=== PATIENT | female | born 1995 | race African-American/Black ===

== ENCOUNTER 2018-01-31 00:42 | Emergency (ER) | payer SELFPAY ==
[~2018-01-31] VITALS: Ht 162.6 cm; Wt 77.1 kg
[2018-01-31 01:10] VITALS: BP 121/75
--- NOTE | 2018-01-31 02:38 | Diagnostic Imaging Report ---
EXAM: CT Head Without Intravenous Contrast CLINICAL HISTORY: PAIN TECHNIQUE: Axial computed tomography images of the head/brain without intravenous contrast. CTDI is 70.38 mGy and DLP is 1354 mGy-cm. One or more of the following dose reduction techniques were used: automated exposure control, adjustment of the mA and/or kV according to patient size, use of iterative reconstruction technique. COMPARISON: No relevant prior studies available. FINDINGS: Brain: Unremarkable. No hemorrhage. No significant white matter disease. No edema. Ventricles: Unremarkable. No ventriculomegaly. Bones/joints: Unremarkable. No acute fracture. Soft tissues: Unremarkable. Sinuses: Unremarkable as visualized. No acute sinusitis. Mastoid air cells: Unremarkable as visualized. No mastoid effusion. IMPRESSION: No acute intracranial abnormality.
[2018-01-31] MEDS ORDERED: Norco 5mg/325mg tab ORAL ONE (02:45)
--- NOTE | 2018-01-31 02:45 | Diagnostic Imaging Report ---
EXAM: CT Orbits Without Intravenous Contrast CLINICAL HISTORY: PAIN TECHNIQUE: Axial computed tomography images of the orbits without intravenous contrast. CTDI is 28.19 mGy and DLP is 150 mGy-cm. One or more of the following dose reduction techniques were used: automated exposure control, adjustment of the mA and/or kV according to patient size, use of iterative reconstruction technique. COMPARISON: No relevant prior studies available. FINDINGS: Orbits: Unremarkable. Sinuses: Minimal mucosal thickening in the floor of the right maxillary sinus. No air-fluid levels. Bones/joints: Minimal cortical irregularity in the anterior medial aspect of the right orbital wall with tiny foci of subjacent air in the periorbital fat. No adjacent hematoma. No other acute bony abnormality. Soft tissues: Unremarkable. Nasal cavity/septum: Mild nasal septal deviation towards the left. Mild hypertrophy of the left inferior turbinate. Nasopharynx: Slight prominence of the posterior nasopharynx, likely represents prominent adenoids. IMPRESSION: Suspect nondisplaced fracture in the anterior medial right orbital wall. No other acute bony abnormality. Prominent adenoids.
[2018-01-31] MEDS ORDERED: NORCO 5-325 TA1 EACH ORAL (02:50)
[2018-01-31] MEDS ORDERED: IBUPROFEN600 MG ORAL (02:50)
--- NOTE | 2018-01-31 03:00 | Diagnostic Imaging Report ---
EXAM: CT Cervical Spine Without Intravenous Contrast CLINICAL HISTORY: PAIN TECHNIQUE: Axial computed tomography images of the cervical spine without intravenous contrast. CTDI is 19.06 mGy and DLP is 433 mGy-cm. One or more of the following dose reduction techniques were used: automated exposure control, adjustment of the mA and/or kV according to patient size, use of iterative reconstruction technique. COMPARISON: No relevant prior studies available. FINDINGS: Vertebrae: Straightening of the normal cervical lordosis which may reflect muscle spasm or positional artifact. No acute fracture. Discs/spinal canal/neural foramina: No acute findings. No spinal canal stenosis. Soft tissues: Unremarkable. Nasopharynx: Prominent posterior naso-pharynx likely prominent adenoids. Other findings: No discrete bony lesion. IMPRESSION: No acute bony abnormality. Straightening of the normal cervical lordosis
[2018-01-31 03:15] VITALS: BP 125/73
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
== END 2018-01-31 03:15 | disposition home or self-care (01) ==
LOC: EMR 01:21
DX: S02.81XA Fracture of other specified skull and facial bones, right side, initial encounter for closed fracture (principal); S00.83XA Contusion of other part of head, initial encounter; S00.81XA Abrasion of other part of head, initial encounter; H11.33 Conjunctival hemorrhage, bilateral; Y04.8XXA Assault by other bodily force, initial encounter
CPT/HCPCS: 70450; 70480; 72125; 81025; 99284